=== PATIENT | female | born 1985 ===

== ENCOUNTER 2025-04-12 07:57 | Outpatient (CLI) | payer BC, SELFPAY | END 2025-04-12 07:58 | disposition home or self-care (01) | LOC: ANHAUDASC 07:59 | PROVIDERS: PCP Registered Nurse; Visit Provider Registered Nurse | DX: H93.12 Tinnitus, left ear (principal); H93.8X2 Other specified disorders of left ear; R42 Dizziness and giddiness; Z82.2 Family history of deafness and hearing loss; H92.12 Otorrhea, left ear; Z86.73 Personal history of transient ischemic attack (TIA), and cerebral infarction without residual deficits | CPT/HCPCS: 92557; 92567 ==